=== PATIENT | female | born 1995 | race Caucasian/White ===

== ENCOUNTER 2019-04-08 07:39 | Inpatient (IN) ==
[~2019-04-08 07:39] MED LIST: CEFAZOLIN 3000MG 65 ML IV SCH
[2019-04-08] MEDS ORDERED: OXYTOCIN 30 UNITS/500 ML BAG IV PRN ×2 (07:42→07:46)
[2019-04-08] MEDS ORDERED: LACTATED RINGER'S 1,000 ML IV PRN (07:42)
[2019-04-08 08:12] LABS: Hematocrit (blood only) 36.6 % (37-47); Mean Corpuscular Hemoglobin 25.7 pg (25-34); Mean Corpuscular Volume 78.4 fL (80-100); Mean Platelet Volume 9.7 fL (7.4-10.4); Platelet Count 265 K/uL (130-400); RDW Coefficient of Variation 15.9 % (11.5-14.5); RDW Standard Deviation 45.2 fL (36.4-46.3); Red Blood Count 4.67 M/uL (4.2-5.4); White Blood Count 11.93 K/uL (4.8-10.8)
[2019-04-08 08:21] LABS: Mean Corpuscular Hgb Conc 32.8 g/dL (32-36)
[2019-04-08] MEDS ORDERED: LACTATED RINGER'S 1,000 ML IV SCH (08:45)
[2019-04-08] MEDS ORDERED: fentaNYL citrate 100 MCG/2 ML VIAL ONE (08:48)
--- NOTE | 2019-04-08 08:52 | Anesthesiology Consultation ---
Date of Service April 08, 2019 Assessment & Plan Chart Review Chart Review: Acceptable Risk for Surgery and Patient NOT seen in Pre Admission Testing Consults Requested none ASA [id number] Proposed Anesthesia Anesthesia Type: General Risk / Benefits Reviewed With: PT / POA / Parent / Guardian, Accepts Plan and Informed Consent Obtained History Surgery Operation Date: 04/08/19 08:45 Proposed Procedures p Section in OR - Emily Wilkerson MD, FACOG Height/Weight Height: 5 ft 4 in Weight: 112.945 kg Allergies Allergy/AdvReac Type Severity Reaction Status Date / Time latex AdvReac Rash Verified 04/07/19 13:00 Medications Home Medications Medication Instructions Recorded Confirmed Last Taken 1 tab PO DAILY 01/22/19 04/08/19 04/07/19 10:00 vitamin,calcium,hpkwixqy-xbwb-otczq acid tablet NPO Date Last Intake of Fluids: 04/08/19 Time Last Intake of Fluids: 06:00 Date Last Intake of Solids: 04/08/19 Time Last Intake of Solids: 06:00 Past Medical History Medical History Anemia GERD (gastroesophageal reflux disease) Morbidly obese Asthma Depression used to take celexa History of varicella Exercise / Class Metabolic Activity III < 4 Walking/Shop/Light housework Past Family History Family History Unknown Asthma Diabetes Grandmother (Maternal) Breast cancer Mother Thyroid disease Sister Thyroid disease Past Surgical History Surgical History S/P wisdom tooth extraction 2015 Past Anesthesia History No Hx of Anesthesia Complications and No Family Hx of Anesthesia Complications History of PONV No Hx of PONV and No Hx of Motion Sickness Social History Smoking Status: Never smoker Do You Dip or Chew Tobacco: No Hx Alcohol Use: No Hx Substance Use: No Physical Exam Vital Signs Last Vital Signs Temp 36.9 C 04/08/19 07:51 Pulse 93 H 04/08/19 08:44 Resp 22 04/08/19 07:51 BP 111/60 04/08/19 08:16 Pulse Ox 100 04/08/19 08:44 Constitutional + morbidly obese ENMT Mouth: no dentition abnormality Thyromental Distance: < 3.5 Finger Breadths Mallampati Class: II Neck normal visual inspection and trachea midline; neck extension not limited Respiratory normal respiratory effort Auscultation: lungs clear to auscultation bilaterally Cardiovascular Rate/Rhythm: regular rate and regular rhythm Heart Sounds: no murmur Musculoskeletal Spine: normal cervical ROM Neurologic moves all extremities Motor/Sensory: no sensory deficit Psychiatric Orientation: alert and oriented x 3 Testing Laboratory Results 04/08/19 08:00
[2019-04-08] MEDS ORDERED: CITRIC ACID/SODIUM CITRATE 15 ML UDC PO SCH (09:00)
[2019-04-08] MEDS ORDERED: MIDAZOLAM HCL 1 MG/ML 2ML VIAL ONE (09:06)
[2019-04-08] MEDS ORDERED: ONDANSETRON INJ 2 MG/ML 2 ML VIAL IV PRN ×2 (09:11→09:46)
[2019-04-08] MEDS ORDERED: ATROPINE SULFATE 0.1 MG/ML 10ML SYR IV PRN (09:11)
[2019-04-08] MEDS ORDERED: ePHEDrine sulfate 50 MG/ML AMP IV PRN (09:11)
[2019-04-08] MEDS ORDERED: HYDROmorphone INJ 2 MG/ML SYR/VIAL ONE (09:16)
[2019-04-08] MEDS ORDERED: OXYTOCIN 10 UNITS/ML VIAL ONE ×3 (09:19→09:23)
[2019-04-08] MEDS ORDERED: SUCCINYLCHOLINE CHLORIDE 20 MG/ML 10 ML VIAL ONE (09:20)
[2019-04-08] MEDS ORDERED: LIDOCAINE HCL 2% 2 ML VIAL/AMP(20MG/ML) INFIL ONE (09:20)
[2019-04-08] MEDS ORDERED: DEXAMETHASONE SOD INJ 4 MG/ML VIAL ONE (09:20)
[2019-04-08] MEDS ORDERED: ONDANSETRON INJ 2 MG/ML 2 ML VIAL ONE (09:20)
[2019-04-08] MEDS ORDERED: PROPOFOL IV EMULSION 10 MG/ML 20 ML VIAL IV ONE (09:20)
[2019-04-08] MEDS ORDERED: CARBOPROST TROMETHAMINE 250 MCG/ML AMPUL IM ONE (09:33)
[2019-04-08] MEDS ORDERED: ePHEDrine sulfate 50 MG/ML AMP ONE (09:35)
[2019-04-08] MEDS ORDERED: PHENYLEPHRINE HCL 10 MG/ML VIAL ONE (09:35)
--- NOTE | 2019-04-08 09:36 | Post Operative Brief Note ---
PG Immediate Post Op with CF Date of Surgery April 08, 2019 Pre & Post Diagnosis Operation Date: 04/08/19 08:45 Pre-Op Diagnosis: Uterine Pregancy at 41 weeks , non-reassuring heart rate testing, 2 vessel cord. Post-Op Diagnosis: Uterine Pregancy at 41 weeks, non-reassuring heart rate testing, 2 vessel cord. I identified the patient and participated in the time-out.: Yes Procedure Operation Date: 04/08/19 08:45 Actual Procedures p Emergency primary low transverse Section in OR(Not Applicable) - Emily Wilkerson MD, FACOG Surgeon Emily Wilkerson MD, FACOG Gynecology Teacher Dr. Elizabeth Estimated Blood Loss 700 Findings Consistent with Post-Op Diagnosis Specimens Specimen Description: A. Cord Blood B. Placenta Specimens taken and labeled by Labor and delivery Nurses. Drains Dennis Catheter (patient arrived to OR with Dennis cath in place)
[2019-04-08] MEDS ORDERED: SENNA 8.6 MG TAB PO PRN (09:46)
[2019-04-08] MEDS ORDERED: MAGNESIUM HYDROXIDE SUSP 30 ML UDC PO PRN (09:46)
[2019-04-08] MEDS ORDERED: BENZOCAINE 20% AER SPR 82.5 GM CAN EXT PRN (09:46)
[2019-04-08] MEDS ORDERED: SUPERCREAM 0.870% 15 GM JAR EXT PRN (09:46)
[2019-04-08] MEDS ORDERED: PROMETHAZINE HCL 25 MG in SODIUM CHLORIDE 0.9% 50 ML IV PRN (09:46)
[2019-04-08] MEDS ORDERED: DiphenhydrAMINE HCL 50 MG/ML VIAL IV PRN (09:46)
[2019-04-08] MEDS ORDERED: HYDROCORTISONE ACETATE 25 MG SUPP PR PRN (09:46)
[2019-04-08] MEDS ORDERED: DIPHTHERIA/TETANUS/PERTUSSIS 0.5 ML SYR/VIAL IM ONE (09:46)
[2019-04-08] MEDS ORDERED: KETOROLAC 30 MG/ML VIAL IV PRN (09:46)
[2019-04-08] MEDS ORDERED: KETOROLAC 30 MG/ML VIAL ONE (09:54)
--- NOTE | 2019-04-08 10:07 | Operative Report ---
DATE OF OPERATION: 04/08/2019 PREOPERATIVE DIAGNOSES: 1. Intrauterine at 41 and 2/7 weeks. 2. Two-vessel cord. 3. Nonreassuring heart testing. POSTOPERATIVE DIAGNOSES: 1. Intrauterine at 41 and 2/7 weeks. 2. Two-vessel cord. 3. Nonreassuring heart testing. PROCEDURE: Emergent primary lower transverse section. SURGEON: Emliy Wilkerson MD SOFTWARE QUALITY AUTOMATION ENGINEER: Clara. ANESTHESIA: General per endotracheal tube. ESTIMATED BLOOD LOSS: 700 mL. FLUIDS: 1000 mL. URINE OUTPUT: 125 mL of clear yellow urine draining from the bladder at the end of the procedure. INDICATIONS: The patient is a 3, para 0-0-2-0 who presents this morning for induction of labor for postdates. The has been complicated with a 2-vessel cord with normal testing. The patient presented the evening before admission for Dennis bulb placement. This was placed without difficulty. The patient tolerated the procedure well. heart tones initially had some trouble settling down, but then did settle down with the baseline in the 130s and accels to the 150s. There were no decels noted. The patient was discharged home. She presented to labor and delivery this morning for induction of labor. The Dennis bulb was found to be sitting in the vagina and was gently removed. The fetus was placed on the monitor. Initial heart tones were in the 120s, but then the patient started to have spontaneous decelerations to the 70s that did respond to resuscitation, but were persistent and continued. Decision was made to proceed to emergent delivery. FINDINGS: On entering the operating room, heart tones were initially in the 120s, but then did decel to the 70s-80s, so the decision was made to proceed with general anesthetic. We delivered a viable male with clear fluid. Weight pending. Apgars 7 and 9. There was a 2-vessel cord with minimal amount of [place]'s jelly and 1 loose nuchal cord. Uterus, tubes, and ovaries were normal bilaterally. COMPLICATIONS: Emergent nature, but no complications of the surgery. DRAINS: Dennis. DISPOSITION: To recovery room in stable condition. DESCRIPTION OF PROCEDURE: The patient was taken to the operating room where she was identified verbally and by bracelet. The patient was taken to the operating room where she was identified and transferred to the operating table. heart tones were obtained as noted above initially in the 120s, but then did decel to the 70s. Decision made to proceed with emergent delivery under general anesthetic. The patient was transferred to the operating table. She was placed in the leftward tilt supine position. A Dennis catheter had previously been placed. She was splashed with Betadine and prepped and draped in a normal sterile fashion. Timeout was held. The patient had preoperative antibiotic ongoing. Once the patient was intubated safely by general anesthesia, Pfannenstiel skin incision was made with a knife, taken down to the underlying layer of fascia with the knife. The fascia was incised in the midline with the knife and stretched with the drone operator's fingers. The superior and inferior edge of the fascial incision was grasped and in a caudad cephalad manner. The fascia was removed from the muscles. The muscles were bluntly in the midline. The peritoneum was entered bluntly and the incision was stretched. The bladder blade was placed. A bladder flap was created, grasping the vesicouterine peritoneum with a snap entering with scissors, taken out laterally with scissors and creating digitally. The bladder blade was replaced. Hysterotomy incision was made with the knife. Clear fluid was noted. The drone operator's hands were placed into the incision. The head was delivered atraumatically through this. A loose nuchal cord x1 was reduced and the rest of baby was delivered with fundal pressure. Nose and mouth were bulb suctioned. Cord was clamped and cut. The infant was handed off to waiting supervising deputy for drying and attention. Cord blood and gases were obtained. The placenta was manually extracted. The uterus was exteriorized and cleared of all clot and debris with moistened laparotomy sponges. Hysterotomy incision was repaired in 2 layers, the first in a running locked layer, the second in an imbricating layer being careful to avoid the bladder. The posterior cul-de-sac was then irrigated and cleared of all clot and debris. The hysterotomy incision was inspected and a [id number] suture was needed in the midline for hemostasis and then hemostasis was good. The uterus was reanteriorized. Hysterotomy incision was again inspected. There was some oozing at the right angle and this was attended to with a uforxe-ml-kttsz suture until hemostasis was assured. The muscles were reapproximated in the midline with several interrupted sutures of 0 Vicryl. The rectus muscle was examined and found to be hemostatic. The fascia was then reapproximated starting at the corners and meeting in the midline and then the subcuticular tissue was irrigated and bleeding was attended to with Bovie electrocautery. The skin was closed with 4-0 subcuticular stitch. All sponge, lap and needle counts were correct x2. The patient tolerated the procedure well and was taken to recovery room in stable condition. I attest to the content of the Intraoperative Record and any orders documented therein. Any exception s are noted below.
[2019-04-08 10:11] LABS: Cord Venous Blood HCO3 24 mmol/L (18.4-26.8); Cord Venous Blood PCO2 51 mmHg (30.4-57.2); Cord Venous Blood PO2 331 mmHg (14.1-43.3)
[2019-04-08] MEDS: fentaNYL citrate 100 MCG/2 ML VIAL IV PRN ×4 (10:12→10:42)
[2019-04-08] MEDS ORDERED: MORPHINE SULFATE PCA 30 MG/30 ML IV PRN (10:12)
[2019-04-08] MEDS ORDERED: NALOXONE HCL 0.4 MG/1 ML VIAL/CARP IV PRN (10:12)
[2019-04-08 10:13] LABS: Base Excess Cord Arterial Bld -6.9 mEq/L (-9-1.8); CO2 Cord Arterial Blood 56 mmHg (39.1-73.5); HCO3 Cord Arterial Blood 22 mmol/L (19.7-28.5); pH Cord Arterial Blood 7.21 (7.1-7.38)
--- NOTE | 2019-04-08 10:23 | Communication Note ---
Date of Service: April 08, 2019 Late Entry While I was in assisting a scheduled c/s with Dr. Elizabeth, Nursing came in to inform us that the patient was having decels. fht at times in the 70s. This was spontaneous. this happened several times requiring resuscitation, position change and oxygen. Did recover to 120s but continued to happen spontaneously. Discussed the situation with the patient and her so. Explained that we would need to move to a c/s as baby not tolerating things despite no real contractions at all. Patient and SO expressed understanding of the situation. Consent reviewed and signed. Will be proceeding to the OR downstairs.
--- NOTE | 2019-04-08 10:59 | Anesthesiology Progress Note ---
Date of Service April 08, 2019 Anesthesia Post Procedure Vital Signs Vital Signs: Temp Pulse Pulse Resp BP BP Pulse Ox 04/08/19 10:47 88 22 124/76 100 04/08/19 10:35 71 17 137/89 100 04/08/19 10:25 71 18 130/89 100 04/08/19 10:15 73 20 137/89 100 04/08/19 10:05 81 22 142/92 H 100 04/08/19 09:59 97.3 F L 90 16 133/93 100 04/08/19 08:49 91 H 100 04/08/19 08:44 93 H 100 04/08/19 08:39 97 H 100 04/08/19 08:34 103 H 98 04/08/19 08:16 74 111/60 04/08/19 07:51 98.4 F 22 Pain Intensity Lower Abdomen: Pain Intensity: 4 Transfer of Care Handoff Completed per policy Notes Mental Status: alert / awake / arousable and participated in evaluation Patient Amnestic to Procedure: Yes Nausea / Vomiting: adequately controlled Pain: adequately controlled Airway Patency, RR, SpO2: stable & adequate BP & HR: stable & adequate Hydration State: stable & adequate Anesthetic Complications: no major complications apparent and Pt Satisfied with anesthetic care
[2019-04-08] MEDS ORDERED: COUGH DROP (SUGAR FREE) LOZ 24 LOZ/1 BOX BUCCAL ONE (12:23)
[2019-04-08] MEDS: SIMETHICONE 80 MG CHEW PO SCH ×3 (14:37→21:15)
[2019-04-08] MEDS: OXYTOCIN 20 UNITS in LACTATED RINGER'S 1,000 ML IV SCH (19:37)
[2019-04-08] MEDS: DOCUSATE SODIUM 100 MG CAP PO SCH (21:15)
[2019-04-09] MEDS: OXYTOCIN 20 UNITS in LACTATED RINGER'S 1,000 ML IV SCH ×2 (04:15→11:27)
--- NOTE | 2019-04-09 06:45 | Obstetrical Progress Note ---
Date of Service <Kourtney Diaz MD - Last Filed: 04/09/19 07:40> April 09, 2019 Assessment & Plan <Kourtney Diaz MD - Last Filed: 04/09/19 07:40> (1) Encounter for postoperative care: - POD1 after emergency C/S for NRFHR with breech presentation - mom doing okay this AM - cheng removed, no urination yet, passing gas - tolerating oral diet - currently on high flow nasal cannula in room Day #:: 1 Subjective <Kourtney Diaz MD - Last Filed: 04/09/19 07:40> Passing Gas:: Yes Diet Tolerance:: regular diet Lochia:: Moderate Feeding Type:: breast feeding Physical Exam <Kourtney Diaz MD - Last Filed: 04/09/19 07:40> Constitutional well developed and well nourished Respiratory normal respiratory effort; no respiratory distress, no labored breathing and no cough Auscultation: no crackles, no rales, no rhonchi and no wheezes Cardiovascular Rate/Rhythm: regular rate and regular rhythm Heart Sounds: no gallop, no murmur and no cardiac rub Extremities: + pedal edema Gastrointestinal (Abdomen) Inspection/Auscultation: + abdomen distended and normal bowel sounds Percussion/Palpation: + abdomen tender and abdomen soft; no guarding Skin C/S incision covered by adhesive dressings. Tender to palpation outside of dressing area. Did not uncover dressing this AM. mild bruising on R posterior calf, tender to calf squeeze on right but not on left. Genitourinary Uterus firm, palpable at umbilicus, some tenderness to palpation. Results & Data <Kourtney Diaz MD - Last Filed: 04/09/19 07:40> Vital Signs (Past 12 Hours) Vital Signs Temp Pulse Pulse Resp BP Pulse Ox 04/09/19 03:30 36.8 C 90 18 108/67 96 04/08/19 23:00 36.6 C 81 20 114/74 97 04/08/19 20:00 36.9 C 95 H 16 116/75 97 <Nessa Patel MD, FACOG - Last Filed: 04/09/19 08:51> Co-Signing Physician Notes Resident Physician Supervision Note: I interviewed and examined the patient. Discussed with Dr. Diaz and agree with findings and plan as documented in the note. Any exceptions or clarifications are listed here: [None] Documented By: Nessa Patel MD, FACOG
[2019-04-09] MEDS ORDERED: ACETAMINOPHEN 500 MG TAB PO PRN (07:38)
[2019-04-09 07:40] LABS: Basophils # (auto) 0.01 K/uL (0-0.2); Basophils % (auto) 0.1 %; Eosinophils # (auto) 0.08 K/uL (0-0.5); Eosinophils % (auto) 0.6 %; Hematocrit (blood only) 26.7 % (37-47); Hemoglobin 8.7 g/dL (12.0-16.0); Immature Granulocytes # (auto) 0.03 K/uL (0.00-0.02); Immature Granulocytes % (auto) 0.2 %; Lymphocytes # (auto) 2.59 K/uL (1.2-3.4); Lymphocytes % (auto) 20.9 %; Mean Corpuscular Hgb Conc 32.6 g/dL (32-36); Mean Corpuscular Volume 79.7 fL (80-100); Mean Platelet Volume 9.6 fL (7.4-10.4); Monocytes # (auto) 0.68 K/uL (0.11-0.59); Monocytes % (auto) 5.5 %; Neutrophils # (auto) 9.03 K/uL (1.4-6.5); Neutrophils % (auto) 72.7 %; Platelet Count 225 K/uL (130-400); RDW Standard Deviation 46.7 fL (36.4-46.3); Red Blood Count 3.35 M/uL (4.2-5.4); White Blood Count 12.42 K/uL (4.8-10.8)
[2019-04-09] MEDS: DOCUSATE SODIUM 100 MG CAP PO SCH ×2 (08:09→20:29)
[2019-04-09] MEDS: FERROUS SULFATE 325 MG TAB PO SCH (08:09)
[2019-04-09] MEDS: PRENATAL VITAMIN 1 TAB PO SCH (08:09)
[2019-04-09] MEDS: IBUPROFEN 600 MG TAB PO PRN ×3 (09:46→20:29)
[2019-04-09] MEDS: OXYCODONE/ACETAMINOPHEN 5mg/325mg TAB PO PRN ×2 (09:47→20:30)
--- NOTE | 2019-04-09 10:59 | Ultrasound Report ---
US venous doppler LE RT CLINICAL HISTORY: calf pain in , bruising COMPARISON STUDY: No previous studies for comparison. FINDINGS: Real-time and color flow Doppler imaging were performed. Flow was seen within the femoral, popliteal and calf veins with no intraluminal thrombus demonstrated. The saphenous vein is patent. IMPRESSION: No evidence of deep venous thrombosis. The above report was generated using voice recognition software. It may contain grammatical, syntax or spelling errors. Electronically signed by: Hernandez Mccord M.D. 04/09/2019 10:58 AM
[2019-04-09] MEDS: SIMETHICONE 80 MG CHEW PO SCH ×4 (11:03→20:29)
--- NOTE | 2019-04-09 11:03 | Anesthesiology Progress Note ---
Date of Service April 09, 2019 Anesthesia Post Procedure Vital Signs Vital Signs: Temp Pulse Pulse Resp BP Pulse Ox 04/09/19 03:30 98.2 F 90 18 108/67 96 04/08/19 23:00 97.9 F 81 20 114/74 97 04/08/19 20:00 98.4 F 95 H 16 116/75 97 04/08/19 17:15 23 04/08/19 16:30 97.9 F 95 H 23 125/82 96 04/08/19 12:30 98.2 F 74 19 116/73 98 04/08/19 11:22 97.9 F 70 19 120/80 96 Pain Intensity Lower Abdomen: Pain Intensity: 3 Transfer of Care Handoff Completed per policy Notes Mental Status: alert / awake / arousable and participated in evaluation Patient Amnestic to Procedure: Yes Nausea / Vomiting: adequately controlled Pain: adequately controlled Airway Patency, RR, SpO2: stable & adequate BP & HR: stable & adequate Hydration State: stable & adequate Anesthetic Complications: no major complications apparent and Pt Satisfied with anesthetic care
[2019-04-09] MEDS: SODIUM CHLORIDE 0.9% 1000ML 1,000 ML IV SCH (11:23)
[2019-04-09] MEDS: LACTATED RINGER'S 1,000 ML IV SCH ×7 (11:24→18:01)
[2019-04-09] MEDS ORDERED: bisacodyL 5 MG TABEC PO SCH (20:00)
[2019-04-10] MEDS: IBUPROFEN 600 MG TAB PO PRN ×5 (00:41→23:41)
[2019-04-10] MEDS: OXYCODONE/ACETAMINOPHEN 5mg/325mg TAB PO PRN ×5 (00:42→23:40)
--- NOTE | 2019-04-10 06:38 | Obstetrical Progress Note ---
Date of Service <Kourtney Diaz MD - Last Filed: 04/10/19 08:10> April 10, 2019 Assessment & Plan <Kourtney Diaz MD - Last Filed: 04/10/19 08:10> (1) Encounter for postoperative care: 24 yo here after encounter for labor progressed to a stat C/S for nonresponsive heart tones, 2 vessel cord found after . Doing much better this Am. Pain well controlled with oral percocet. tolerating oral diet, ambulating to bathroom. Generally looking much better than yesterday. Day #:: 2 Subjective <Kourtney Diaz MD - Last Filed: 04/10/19 08:10> Ambulation: ambulating normally Voiding: no voiding problems Passing Gas:: Yes Diet Tolerance:: regular diet Feeding Type:: breast feeding Current Pain Level(1-10): 0 24 yo here after encounter for labor progressed to a stat C/S for non responsive heart tones. Doing much better this Am. Pain well controlled with oral percocet. Constitutional: + fatigue; no fever and no chills Respiratory: no cough and no dyspnea No shortness of breath Cardiovascular: + edema; no chest pain, no syncope and no calf pain Breast: no breast pain Gastrointestinal: no abdominal pain, no nausea, no vomiting, no cramping, no constipation and no diarrhea/loose stools Genitourinary (female): no dysuria and no difficulty urinating Neurologic: no headache(s) Physical Exam <Kourtney Diaz MD - Last Filed: 04/10/19 08:10> Constitutional well developed and well nourished Respiratory normal respiratory effort; no respiratory distress, no labored breathing and no cough Auscultation: no crackles, no rales, no rhonchi and no wheezes Cardiovascular Rate/Rhythm: regular rate and regular rhythm Heart Sounds: no gallop, no murmur and no cardiac rub Extremities: + pedal edema Gastrointestinal (Abdomen) Inspection/Auscultation: + abdomen distended and normal bowel sounds Percussion/Palpation: + abdomen tender and abdomen soft; no guarding Results & Data <Kourtney Diaz MD - Last Filed: 04/10/19 08:10> Vital Signs (Past 12 Hours) Vital Signs Temp Pulse Pulse Pulse Resp BP Pulse Ox 04/10/19 00:25 36.8 C 91 H 91 H 18 110/73 04/09/19 20:00 36.9 C 96 H 18 111/70 97 <Leslie Oliver MD, FACOG - Last Filed: 04/10/19 08:12> Co-Signing Physician Notes Resident Physician Supervision Note: I was present with Dr. Diaz during the history and exam. I discussed the case with the resident and agree with the findings and plan as documented in the note. Any exceptions or clarifications are listed here: pt doing well, ambulating, domenic regular diet, +flatus, pain well controlled. voiding well. no cp/sob. vss, abd soft ff 2 down nt, incision c/d/i. pod #2 doing well, routine care. Documented By: Leslie Oliver MD, FACOG
[2019-04-10 06:53] LABS: Hematocrit (blood only) 26.2 % (37-47); Hemoglobin 8.5 g/dL (12.0-16.0)
[2019-04-10] MEDS: FERROUS SULFATE 325 MG TAB PO SCH (08:19)
[2019-04-10] MEDS: DOCUSATE SODIUM 100 MG CAP PO SCH ×2 (08:20→21:13)
[2019-04-10] MEDS: SIMETHICONE 80 MG CHEW PO SCH ×4 (08:20→21:13)
[2019-04-10] MEDS: PRENATAL VITAMIN 1 TAB PO SCH (08:20)
[2019-04-10] MEDS ORDERED: bisacodyL 10 MG SUPP PR PRN (09:46)
[2019-04-10] MEDS ORDERED: Nursing to Pharmacy Communication ONE (15:12)
[2019-04-10 16:24] VITALS: TEMP 98.1
--- NOTE | 2019-04-11 07:09 | Obstetrical Progress Note ---
Date of Service <Kourtney Diaz MD - Last Filed: 04/11/19 07:17> April 11, 2019 Assessment & Plan <Kourtney Diaz MD - Last Filed: 04/11/19 07:17> (1) Encounter for postoperative care: 24 yo POD3 s/p stat C/S for nonresponsive heart tones, 2 vessel cord found after . May require tighter pain control with scheduled percocet and tylenol, ibuprofen. Concern for increasing uterine tenderness, however uterus is still firm and p atient is afebrile, lochia slowing. Tolerating oral diet, ambulating to bathroom. Recommend ambulation on the floor. Able to D/C home today. Subjective <Kourtney Diaz MD - Last Filed: 04/11/19 07:17> Ambulation: limited ambulation Voiding: no voiding problems Passing Gas:: Yes Diet Tolerance:: regular diet Lochia:: Small Feeding Type:: breast feeding Current Pain Level(1-10): 4 Increasing abdominal pain and soreness compared to yesterday. Tolerating regular diet without N/V. Moving bladder and passing gas without issue. Breast feeding. Ambulating to bathroom, however hasn't walked around floor yet. Constitutional: + fatigue; no fever and no chills Cardiovascular: + edema; no chest pain, no syncope and no calf pain Physical Exam <Kourtney Diaz MD - Last Filed: 04/11/19 07:17> Constitutional well developed and well nourished Respiratory normal respiratory effort; no respiratory distress, no labored breathing and no cough Auscultation: no crackles, no rales, no rhonchi and no wheezes Cardiovascular Rate/Rhythm: regular rate and regular rhythm Heart Sounds: no gallop, no murmur and no cardiac rub Extremities: + pedal edema Gastrointestinal (Abdomen) Inspection/Auscultation: + abdomen distended and normal bowel sounds Percussion/Palpation: abdomen soft Abdomen particularly tender to exam. No epigastric tenderness, + tender to palpation in RLQ and to palpation of uterus. No rebound, no guarding. Musculoskeletal No calf pain or tenderness to palpation Genitourinary Uterus firm and increasingly tender to palpation compared to exam yesterday. Palpable just below umbilicus. C/S incision still dry, clean, intact, no oozing blood or fluid. No surrounding erythema present, increased point tenderness near left corner of incision. Results & Data <Kourtney Diaz MD - Last Filed: 04/11/19 07:17> Vital Signs (Past 12 Hours) Vital Signs Temp Pulse Resp BP Pulse Ox 04/10/19 23:10 36.7 C 90 15 108/73 97 04/10/19 19:40 36.7 C 95 H 16 114/75 100 <Reina Rodriguez MD - Last Filed: 04/11/19 08:50> Co-Signing Physician Notes I have reviewed the resident's note and examined the patient myself, and agree with the note above. Resident Activity Tracking <Kourtney Diaz MD - Last Filed: 04/11/19 07:17> Resident Involvement: Resident Care Provided Care Provided: OB Delivery
[2019-04-11] MEDS: SIMETHICONE 80 MG CHEW PO SCH ×2 (08:22→12:34)
[2019-04-11] MEDS: DOCUSATE SODIUM 100 MG CAP PO SCH (08:22)
[2019-04-11] MEDS: FERROUS SULFATE 325 MG TAB PO SCH (08:22)
[2019-04-11] MEDS: IBUPROFEN 600 MG TAB PO PRN ×2 (08:22→12:35)
[2019-04-11] MEDS: PRENATAL VITAMIN 1 TAB PO SCH (08:22)
[2019-04-11] MEDS: OXYCODONE/ACETAMINOPHEN 5mg/325mg TAB PO PRN ×2 (08:23→12:34)
[2019-04-11 09:31] VITALS: BP 108/72; PULSE 91; O2SAT 100
--- NOTE | 2019-04-14 11:04 | Discharge Summary ---
ADMIT DIAGNOSES: 1. Intrauterine at 41+ weeks. 2. Two-vessel umbilical cord. DISCHARGE DIAGNOSES: 1. Intrauterine at 41+ weeks. 2. Two-vessel umbilical cord. 3. Nonreassuring heart testing. PROCEDURES: Emergent primary low transverse section. HISTORY OF PRESENT ILLNESS: The patient is a 3, para 0-0-2-0 who presented for induction at 41+ weeks for postdates induction. The had been complicated by a 2-vessel umbilical cord with a normal echo, normal weekly NSTs and normal growth ultrasounds. The patient had presented the night before for Dennis bulb for cervical ripening. The fetus was reassuring at that time and she was sent home. When she presented in the morning for induction, the heart tones noted to have spontaneous decelerations to the 70s, happening several times requiring resuscitation, position changes and oxygenation. The heart tones did recover to a baseline of 120s, but this continued to happen spontaneously. We discussed the situation with the patient and her significant other. The Dennis bulb had been pulled out by Dr. Elizabeth prior to going back for a scheduled and the cervix was 3 cm dilated. I discussed with the patient the urgency of the situation and she consented for section. For the rest the patient's history and physical, please see her OB notes. ASSESSMENT: This is a 3, para 0-0-2-0 with an intrauterine at 41+ weeks who was presenting for an induction for postdates. Baby had a known 2-vessel cord. There was nonreassuring heart testing with spontaneous decels to the 70s before we even began any intervention. HOSPITAL COURSE: The patient was admitted and she underwent an emergent primary low transverse section under general anesthesia. Estimated blood loss was 700 mL When we entered the operating room, the heart tones were initially in the 120s, but then did decel to the 70s-80s, so the decision was made to proceed with general anesthetic. We then delivered a viable male with clear fluid. Weight was pending at the time of surgery. Apgars were 7 and 9. There was a 2-vessel cord with minimal amount of [place]'s jelly and 1 loose nuchal cord. Uterus, tubes, and ovaries were normal bilaterally. The patient's postoperative course was uncomplicated. She tolerated a regular diet, ambulated without difficulty, voided after the removal of her Dennis catheter, had her pain well controlled. Her discharge H and H was 8.5 and 26.2. She was discharged home on postoperative day #3 with prescriptions for Percocet and ibuprofen and will return for followup per protocol.
== END 2019-04-11 14:35 | disposition home or self-care (01) | DRG 788 ==
LOC: 4S1 07:39 → 4S2 12:25

== ENCOUNTER 2020-09-02 05:27 | Inpatient (IN) ==
--- NOTE | 2020-08-11 09:10 | Anesthesiology Consultation ---
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 She wears a mask in public, washes hands, social distances. Works in [place] counties and has 6 clients in those counties. "Almost all of those clients have had Covid vaccine, everyone has been healthy." Patient aware of need for pre-op COVID test. Patient was diagnosed with COVID-19 on 05/18/2020 (will obtain record of test results). By DOS will > 90 days since dx. Per DATA ANALYTICS ARCHITECT note on 08/04/2020, Covid test ordered for August 27. 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 Surgery Operation Date: 09/02/20 07:30 Proposed Procedures p Section in LD - Emily Wilkerson MD, FACOG Height/Weight Height: 5 ft 4 in Weight: 98.883 kg Allergies Allergy/AdvReac Type Severity Reaction Status Date / Time latex AdvReac Unknown Rash Verified 08/11/20 08:51 FRUIT Allergy Unknown KIWI, Uncoded 08/11/20 08:52 PINEAPPLE, BANANAS-SCRATCHY TONGUE Medications Home Medications Medication Instructions Recorded Confirmed Last Taken prenat.vits,justus,dmm-tdmy-ehode 1 tab PO HS 01/22/19 08/11/20 04/07/19 10:00 Iron Tab Otc Gummies 1 tab PO HS 08/11/20 08/11/20 Unknown Past Medical History Medical History Acne vulgaris Anemia BORDERLINE-TAKING IRON SUPPLEMENTS Asthma A CHILD Chlamydia 2012 Depression HX-NO MEDS Encounter for anatomic survey Encounter for postoperative care GERD (gastroesophageal reflux disease) Miscarriage Morbidly obese Normal in multigravida, antepartum Prolonged , antepartum Two vessel umbilical cord, antepartum Varicella vaccine Past Family History Family History Unknown Diabetes MOTHER, MATERNAL GRANDMOTHER Asthma Grandmother (Maternal) Breast cancer Mother Thyroid disease Sister Thyroid disease Past Surgical History Surgical History H/O section S/P wisdom tooth extraction 2015 Social History Smoking Status: Never smoker Do You Dip or Chew Tobacco: No Hx Alcohol Use: Yes Alcohol type: hard liquor alcohol intake frequency: holidays/special occasions only Alcohol Intake Frequency Comment: WHEN NOT Hx Substance Use: No
--- NOTE | 2020-09-01 14:11 | History and Physical Report ---
DATE OF ADMISSION: 09/02/2020 ADMIT DIAGNOSES: 1. Intrauterine at 39 and 0/7 weeks. 2. History of previous section, desires repeat. HISTORY OF PRESENT ILLNESS: The patient is a 25-year-old white female, 4, para 1-0-2-1, who presents for repeat section. Her first viable was delivered in 03/2019. It was an induction at 41 weeks. She came in for a Dennis bulb the night before induction and it was placed with a reactive and category 1 tracing, and then when she returned in the morning for her induction, there were variables noted that did not recover and she ended up having a section under general anesthesia. There was a 2-vessel cord with that. The baby did fine. She now presents at 39 and 0/7 weeks and desires repeat section, declining trial of labor, declines tubal ligation. This has essentially been uncomplicated. She did have a positive COVID test on 05/14/2020, but had a subsequent negative COVID test on 08/27/2020. She has noted good movement, no significant labor, no swelling, no vaginal bleeding or leaking of fluid. The baby is vertex. PAST OBSTETRIC AND GYNECOLOGIC HISTORY: The patient's first was in 06/2016 with spontaneous . Second in 06/2017, spontaneous . Third as noted above and this is the fourth . She had chlamydia diagnosed in 2011, which was treated, but denies other STDs. PAST MEDICAL HISTORY: Significant for history of depression -- not currently on medications, history of anemia, history of GERD, history of childhood asthma, but has not been an issue as an adult and she is otherwise healthy. PAST SURGICAL HISTORY: Includes and wisdom teeth removal. SOCIAL HISTORY: The patient denies tobacco, alcohol or drug use. PHYSICAL EXAMINATION: GENERAL: This is a well-developed, well-nourished white female in no acute distress. VITAL SIGNS: Her blood pressure is 122/74, her weight is 224 pounds. NECK: Supple without thyromegaly or lymphadenopathy. CHEST: Clear to auscultation bilaterally. CARDIOVASCULAR: Regular rate and rhythm without murmurs, gallops or rubs. ABDOMEN: Gravid, soft and nontender. EXTREMITIES: Show no edema. CERVIX: Exam has been deferred throughout. LABORATORY DATA: Blood type A positive, antibody negative, rubella immune, RPR nonreactive, hepatitis B negative, HIV negative. Glucose tolerance test normal x2. Chlamydia and gonorrhea cultures negative. Panorama within normal limits. She declines CF, SMA and AFP. Her GBS is negative and again she had a negative COVID screen on 08/27. ASSESSMENT AND PLAN: Shanthi is a 25-year-old white female, 4, para 1-0-2-1, who presents at 39 and 0/7 weeks for an elective repeat section. The risks of the procedure were discussed with the patient including the risks of anesthesia, bleeding requiring transfusion, infection, poor wound healing, damage to surrounding structures including bowel, bladder, vessels, nerves and ureters with need for further surgery, hospitalization or intervention. We discussed the other risks of any surgery including heart attack, blood clot, stroke and . Consent was reviewed and signed and surgery is planned for 09/02/2020.
[2020-09-02] MEDS ORDERED: LACTATED RINGER'S 1,000 ML IV SCH ×4 (05:30→10:50)
[2020-09-02] MEDS ORDERED: CITRIC ACID/SODIUM CITRATE 15 ML UDC PO SCH (06:00)
[2020-09-02 06:08] LABS: Basophils # (auto) 0.02 K/uL (0-0.2); Basophils % (auto) 0.2 %; Eosinophils # (auto) 0.32 K/uL (0-0.5); Eosinophils % (auto) 3.9 %; Hematocrit (blood only) 34.3 % (37-47); Hemoglobin 11.2 g/dL (12.0-16.0); Immature Granulocytes # (auto) 0.02 K/uL (0.00-0.02); Immature Granulocytes % (auto) 0.2 %; Lymphocytes # (auto) 2.54 K/uL (1.2-3.4); Lymphocytes % (auto) 30.8 %; Mean Corpuscular Hemoglobin 24.8 pg (25-34); Mean Corpuscular Hgb Conc 32.7 g/dL (32-36); Mean Corpuscular Volume 75.9 fL (80-100); Monocytes # (auto) 0.51 K/uL (0.11-0.59); Monocytes % (auto) 6.2 %; Neutrophils # (auto) 4.84 K/uL (1.4-6.5); Neutrophils % (auto) 58.7 %; Platelet Count 274 K/uL (130-400); RDW Coefficient of Variation 15.1 % (11.5-14.5); RDW Standard Deviation 42.4 fL (36.4-46.3); Red Blood Count 4.52 M/uL (4.2-5.4); White Blood Count 8.25 K/uL (4.8-10.8)
[2020-09-02 06:31] LABS: Appearance Urine Clear (Clear); Bacteria Urine Automated Negative (Negative); Bilirubin Urine Negative (Negative); Blood Urine Trace (Negative); Color Urine Yellow; Epithelial Cell Urine Auto >30 /lpf (0-5); Glucose Urine UA Negative (Negative); Ketones Urine Negative (Negative); Leukocyte Esterase Urine 1+ (Negative); Nitrite Urine Negative (Negative); Protein Urine Negative (Negative); Specific Gravity Urine 1.022 (1.000-1.030); Urobilinogen Urine Negative (Negative); pH Urine 6.5 (4.5-7.5)
[2020-09-02] MEDS ORDERED: fentaNYL citrate 100 MCG/2 ML VIAL ONE (06:41)
[2020-09-02] MEDS ORDERED: MoRPHine SULFATE PF 1 MG/ML 10 ML AMP/VIAL ONE (06:41)
--- NOTE | 2020-09-02 07:17 | History & Physical Bridge Note ---
Date of Service September 02, 2020 History & Physical Bridge Note I have examined the patient, reviewed the History & Physical and in the interval since the performance of the History & Physical I have noted the following changes of clinical significance: no changes noted
[2020-09-02] MEDS ORDERED: PROMETHAZINE HCL 25 MG in SODIUM CHLORIDE 0.9% 50 ML IV PRN (08:06)
[2020-09-02] MEDS ORDERED: diphenhydrAMINE 50 MG/ML VIAL IV PRN (08:06)
[2020-09-02] MEDS ORDERED: MoRPHine SULFATE PF 1 MG/ML 10 ML AMP/VIAL INT SPINAL ONE (08:06)
[2020-09-02] MEDS ORDERED: ePHEDrine sulfate 50 MG/ML AMP IV PRN (08:06)
[2020-09-02] MEDS ORDERED: NALOXONE HCL 1 MG in SODIUM CHLORIDE 0.9% 1000ML 1,000 ML IV PRN (08:06)
[2020-09-02] MEDS ORDERED: NALOXONE HCL 0.4 MG/1 ML VIAL/CARP IV PRN (08:06)
[2020-09-02] MEDS ORDERED: MoRPHine SULFATE 2 MG/ML CARP IV PRN (08:06)
[2020-09-02] MEDS ORDERED: ONDANSETRON INJ 2 MG/ML 2 ML VIAL IV PRN (08:06)
[2020-09-02] MEDS ORDERED: LACTATED RINGER'S 500 ML IV PRN (08:06)
[2020-09-02] MEDS ORDERED: MEPERIDINE HCL 25 MG/ML CARP/VIAL IV PRN (08:06)
[2020-09-02] MEDS ORDERED: NALOXONE HCL 0.08 MG in SYRINGE 1.8 ML IV PRN (08:06)
[2020-09-02] MEDS ORDERED: SODIUM CHLORIDE 0.9% 1000ML 1,000 ML IV SCH (08:15)
[2020-09-02] MEDS ORDERED: NO NARCOTICS OR SEDATIVES SCH (08:15)
[2020-09-02] MEDS ORDERED: ONDANSETRON INJ 2 MG/ML 2 ML VIAL ONE (08:16)
[2020-09-02] MEDS ORDERED: OXYTOCIN 10 UNITS/ML VIAL ONE (08:16)
[2020-09-02] MEDS ORDERED: ePHEDrine sulfate 50 MG/ML SYR ONE (08:32)
[2020-09-02] MEDS ORDERED: PHENYLEPHRINE 100MCG/ML 5ML SYR ONE (08:32)
--- NOTE | 2020-09-02 08:53 | Operative Report ---
PG Post Operative Report Pre & Post Diagnosis Operation Date: 09/02/20 07:30 Pre-Op Diagnosis: Previous Section; Desires Repeat Section. Post-Op Diagnosis: Previous Section; Desires Repeat Section. I identified the patient and participated in the time-out.: Yes Procedure Operation Date: 09/02/20 07:30 Actual Procedures p Repeat lower transverse Section in LD; Live Female Infant at 0817 in OR #3(Bilateral) - Emily Wilkerson MD, FACOG Surgeon Emily Wilkerson MD, FACOG Aqua Ammonia Operator Dr. Luther Estimated Blood Loss 600 Findings Consistent with Post-Op Diagnosis viable female infant, apgars 8/9. nl uterus/tubes/ovaries Fluids 1000cc Specimens placenta Drains cheng Anesthesia Type Spinal Complications none Disposition Accompanied Patient To Recovery: Yes Disposition: L&D Indications IUP at 39 0/7 weeks with hx of previous c/s who desires repeat. Description of Procedure The patient was taken to the operating room where she was identified verbally and by bracelet. She was seated on the operating table where a spinal anesthetic was placed by anesthesia. she was then placed in the supine position with a leftward tilt. A Cheng catheter was placed sterilely. the patient was prepped and draped in a normal standard fashion. the anesthetic was tested and found to be adequate. A time-out was held, identifying correct patient, procedure, positioning and preoperative antibiotics. There were no concerns. A Pfannenstiel skin incision was made with a knife and taken down to the underlying layer of fascia with the knife and Bovie electrocautery. Bleeding was attended to with Bovie cautery. The fascia was incised in the midline with the knife and taken out laterally with scissors. the superior edge of the fascial incision was grasped, elevated and the underlying layer of rectus muscle was taken off bluntly and with scissors. In a similar fashion, the inferior edge of the fascial incision was grasped, elevated and the underlying layer of rectus muscle was taken off bluntly and with scissors. The muscles were bluntly in the midline. The peritoneum was entered bluntly. The incision was then stretched. The bladder blade was placed. The vesicouterine p eritoneum was identified, entered with scissors and taken out laterally with scissors. The bladder flap was created digitally A hysterotomy incision was scored with a knife and the incision was stretched cephalad and caudad with the breaker machine operator's fingers. The operators hand was placed into the incision and the head was delivered atraumatically. nuchal cord x 1. The nose and mouth were bulb suctioned. the rest of the was then delivered without difficulty. The nose and mouth were again bulb suctioned. the cord was clamped and cut and the was then handed off to the awaiting travel clerk for drying and attention. Cord blood and segment were obtained. The placenta was expressed. the uterus was exteriorized and cleared of all clot and debris with moistened laparotomy sponges. The hysterotomy incision was repaired in two layers, the first in a running locked layer, the second in an imbricating layer. Hemostasis was noted to be good. Posterior cul-de-sac was irrigated and cleared of all clot and debris. The hysterotomy incision was again inspected and found to be hemostatic. the uterus was reinteriorized. Hysterotomy incision was again inspected and two stitches of 0 vicryl needed for hemostasis. Rectus muscles were reapproximated with several interrupted stitches of 0 Vicryl. The fascia was then reapproximated with 0 Vicryl starting at the edges and meeting in the midline. The subcuticular tissues were copiously irrigated and bleeding was attended to with cautery. The skin was then closed with 4-0 Vicryl in a subcuticular fashion. All sponge, lap and needle counts correct x 2. Patient taken to labor and delivery in stable condition. I attest to the content of the Intraoperative Record and any orders documented therein. Any exceptions are noted below. OB Procedure charges OB Charges 22776 C/S
--- NOTE | 2020-09-02 09:04 | Anesthesiology Progress Note ---
Date of Service September 02, 2020 Anesthesia Post Procedure Vital Signs Vital Signs: Temp Pulse Resp BP Pulse Ox 09/02/20 09:02 81 100 09/02/20 08:58 84 127/59 L 09/02/20 08:57 88 99 09/02/20 07:34 95 H 110/63 09/02/20 07:28 84 111/66 09/02/20 07:15 36.5 C 64 18 115/60 09/02/20 07:03 64 115/60 09/02/20 05:52 36.6 C 78 118/70 09/02/20 05:34 36.6 C 78 18 118/70 Transfer of Care Handoff Completed per policy Notes Mental Status: alert / awake / arousable and participated in evaluation Patient Amnestic to Procedure: No Nausea / Vomiting: adequately controlled Pain: adequately controlled Airway Patency, RR, SpO2: stable & adequate BP & HR: stable & adequate Hydration State: stable & adequate Neuraxial Anesthesia: was administered and sensory block is resolving Anesthetic Complications: no major complications apparent and Pt Satisfied with anesthetic care
[2020-09-02] MEDS: KETOROLAC 30 MG/ML VIAL IV PRN ×2 (10:05→17:58)
[2020-09-02] MEDS ORDERED: HYDROCORTISONE ACETATE 25 MG SUPP PR PRN (10:50)
[2020-09-02] MEDS ORDERED: BENZOCAINE 20% AER SPR 82.5 GM CAN EXT PRN (10:50)
[2020-09-02] MEDS ORDERED: MAGNESIUM HYDROXIDE SUSP 30 ML UDC PO PRN (10:50)
[2020-09-02] MEDS ORDERED: SUPERCREAM 0.870% 15 GM JAR EXT PRN (10:50)
[2020-09-02] MEDS ORDERED: SENNA 8.6 MG TAB PO PRN (10:50)
[2020-09-02] MEDS ORDERED: ACETAMINOPHEN 1,000 MG/100 ML VIAL IV PRN (10:52)
[2020-09-02] MEDS: OXYTOCIN 20 UNITS in LACTATED RINGER'S 1,000 ML IV SCH ×2 (11:13→19:38)
[2020-09-02] MEDS: SIMETHICONE 80 MG CHEW PO SCH ×3 (13:56→20:25)
[2020-09-02] MEDS: DOCUSATE SODIUM 100 MG CAP PO SCH (20:25)
[2020-09-03] MEDS: KETOROLAC 30 MG/ML VIAL IV PRN (00:17)
[2020-09-03] MEDS ORDERED: DC INTRASPINAL MORPHINE SCH (02:06)
[2020-09-03] MEDS ORDERED: MEPERIDINE HCL 50 MG/ML CARP IV PRN (02:06)
[2020-09-03] MEDS ORDERED: KETOROLAC 30 MG/ML VIAL IV PRN (02:06)
[2020-09-03] MEDS ORDERED: ONDANSETRON INJ 2 MG/ML 2 ML VIAL IV PRN (02:06)
[2020-09-03] MEDS ORDERED: diphenhydrAMINE Capsule 25 MG CAP PO PRN (02:06)
[2020-09-03] MEDS ORDERED: PROMETHAZINE HCL 25 MG in SODIUM CHLORIDE 0.9% 50 ML IV PRN (02:06)
[2020-09-03] MEDS ORDERED: diphenhydrAMINE 50 MG/ML VIAL IV PRN (02:06)
--- NOTE | 2020-09-03 05:17 | Obstetrical Progress Note ---
Date of Service <Immanuel Hess MD - Last Filed: 09/03/20 07:28> September 03, 2020 Assessment & Plan <Immanuel Hess MD - Last Filed: 09/03/20 07:28> (1) : - PNL: Rh pos, RI, GBS neg, COVID neg - Feels well today. Eating well, voiding well, ambulating well - Pain well controlled with ibuprofen 600mg Q4H PRN - Routine postoperative care -- OOB, ambulation, diet progression as tolerated - After discharge will have 6 week follow-up with Dr. Wilkerson Subjective <Immanuel Hess MD - Last Filed: 09/03/20 07:28> Shanthi is a 25 y/o female who is POD #1 following elective delivery at 39+ weeks. She reports feeling well overall this morning. Light abdominal cramping and 3/10 pain well managed on analgesics. Voiding well. Tolerating meals overnight without difficulty. Patient has been able to ambulate some. Is passing gas and had a bowel movement. Has persistent lochia with some improvement this morning. Currently bottle feeding. Review of Systems Denies fever or chills. Denies shortness of breath or cough. Denies chest pain. Denies breast pain. Denies dysuria. Denies leg pain or leg swelling. Denies headache or changes in vision. Physical Exam <Immanuel Hess MD - Last Filed: 09/03/20 07:28> General: Alert, oriented. No acute distress. Cardiac: Regular rate and rhythm. No murmurs. Respiratory: Clear to auscultation bilaterally a/p, no wheezes/rales/rhonchi. No increased work of breathing. Symmetrical chest rise. No respiratory distress. Abdomen: Soft, nontender, nondistended. Bowel sounds present. Uterus: Uterine fundus firm, palpable ~1 cm below umbilicus. Surgical scar clean and healing well. Lower Extremities: No lower extremity edema or swelling. No deep calf pain. Marquise's negative bilaterally. Results & Data ([facility]) <Immanuel Hess MD - Last Filed: 09/03/20 07:28> Vital Signs (Past 12 Hours) Vital Signs Temp Pulse Resp BP Pulse Ox 09/03/20 02:03 18 99 09/03/20 01:00 18 96 09/03/20 00:00 36.8 C 72 18 105/65 99 09/02/20 22:29 18 98 09/02/20 21:05 16 100 09/02/20 20:19 16 99 09/02/20 19:35 36.6 C 60 18 105/67 98 09/02/20 18:30 14 99 09/02/20 17:51 18 100 <Emily Wilkerson MD, FACOG - Last Filed: 09/03/20 07:31> Co-Signing Physician Notes Resident Physician Supervision Note: I interviewed and examined the patient. Discussed with Dr. Weinberg and agree with findings and plan as documented in the note. Any exceptions or clarifications are listed here: Patient doing well. Voiding and passing gas. Tolerating n/v. Plan routine PPD1. Documented By: Emily Wilkerson MD, FACOG Resident Activity Tracking <Immanuel Hess MD - Last Filed: 09/03/20 07:28> Resident Involvement: Resident Care Provided Care Provided: OB Delivery
[2020-09-03] MEDS: oxyCODONE/ACETAMINOPHEN 5mg/325mg TAB PO PRN ×5 (05:40→23:21)
[2020-09-03] MEDS: IBUPROFEN 600 MG TAB PO PRN ×5 (05:41→23:21)
[2020-09-03 06:28] LABS: Basophils # (auto) 0.02 K/uL (0-0.2); Basophils % (auto) 0.2 %; Eosinophils # (auto) 0.28 K/uL (0-0.5); Eosinophils % (auto) 2.7 %; Immature Granulocytes # (auto) 0.02 K/uL (0.00-0.02); Immature Granulocytes % (auto) 0.2 %; Lymphocytes # (auto) 2.66 K/uL (1.2-3.4); Lymphocytes % (auto) 25.9 %; Mean Corpuscular Hemoglobin 24.6 pg (25-34); Mean Corpuscular Hgb Conc 31.4 g/dL (32-36); Mean Corpuscular Volume 78.3 fL (80-100); Mean Platelet Volume 9.9 fL (7.4-10.4); Monocytes # (auto) 0.58 K/uL (0.11-0.59); Monocytes % (auto) 5.6 %; Neutrophils # (auto) 6.72 K/uL (1.4-6.5); Neutrophils % (auto) 65.4 %; Platelet Count 231 K/uL (130-400); RDW Coefficient of Variation 15.5 % (11.5-14.5); RDW Standard Deviation 44.2 fL (36.4-46.3); Red Blood Count 4.47 M/uL (4.2-5.4); White Blood Count 10.28 K/uL (4.8-10.8)
[2020-09-03] MEDS: SIMETHICONE 80 MG CHEW PO SCH ×4 (08:20→19:35)
[2020-09-03] MEDS: PRENATAL VITAMIN 1 TAB PO SCH (08:20)
[2020-09-03] MEDS: FERROUS SULFATE 325 MG TAB PO SCH (08:20)
[2020-09-03] MEDS: DOCUSATE SODIUM 100 MG CAP PO SCH ×2 (08:21→19:35)
[2020-09-03] MEDS ORDERED: bisacodyL 5 MG TABEC PO SCH (20:00)
[2020-09-04] MEDS: oxyCODONE/ACETAMINOPHEN 5mg/325mg TAB PO PRN ×2 (02:55→07:47)
[2020-09-04] MEDS: IBUPROFEN 600 MG TAB PO PRN ×2 (02:55→07:48)
--- NOTE | 2020-09-04 05:35 | Obstetrical Progress Note ---
Date of Service <Immanuel Hess MD - Last Filed: 09/04/20 06:56> September 04, 2020 Assessment & Plan <Immanuel Hess MD - Last Filed: 09/04/20 06:56> (1) : - PNL: Rh pos, RI, GBS neg, COVID neg - Feels well today. Eating well, voiding well, ambulating well - Pain well controlled with ibuprofen 600mg Q4H PRN - Routine postoperative care -- OOB, ambulation, diet progression as tolerated - After discharge will have 6 week follow-up with Dr. Wilkerson Subjective <Immanuel Hess MD - Last Filed: 09/04/20 06:56> Shanthi is a 25 y/o female who is POD #2 following elective delivery at 39+ weeks. She reports feeling well overall this morning. Light abdominal cramping and 2/10 pain well managed on analgesics. Voiding well. Tolerating meals overnight without difficulty. Patient has been able to ambulate some. Is passing gas and had a bowel movement. Has persistent lochia with some improvement this morning. Currently bottle feeding. Review of Systems Denies fever or chills. Denies shortness of breath or cough. Denies chest pain. Denies breast pain. Denies dysuria. Denies leg pain or leg swelling. Denies headache or changes in vision. Physical Exam <Immanuel Hess MD - Last Filed: 09/04/20 06:56> General: Alert, oriented. No acute distress. Cardiac: Regular rate and rhythm. No murmurs. Respiratory: Clear to auscultation bilaterally a/p, no wheezes/rales/rhonchi. No increased work of breathing. Symmetrical chest rise. No respiratory distress. Abdomen: Soft, nontender, nondistended. Bowel sounds present. Uterus: Uterine fundus firm, palpable ~2 cm below umbilicus. Surgical scar clean and healing well. Lower Extremities: No lower extremity edema or swelling. No deep calf pain. Marquise's negative bilaterally. Results & Data ([facility]) <Immanuel Hess MD - Last Filed: 09/04/20 06:56> Vital Signs (Past 12 Hours) Vital Signs Temp Pulse Resp BP Pulse Ox 09/03/20 23:15 36.8 C 61 16 107/70 98 09/03/20 19:40 36.5 C 78 18 115/76 99 <Sun Francis MD, FACOG - Last Filed: 09/04/20 07:26> Co-Signing Physician Notes Resident Physician Supervision Note: I was present with Dr. Weinberg during the history and exam. I discussed the case with the resident and agree with the findings and plan as documented in the note. Any exceptions or clarifications are listed here: [None] Documented By: Sun Francis MD, FACOG Resident Activity Tracking <Immanuel Hess MD - Last Filed: 09/04/20 06:56> Resident Involvement: Resident Care Provided Care Provided: OB Delivery
[2020-09-04 06:13] LABS: Hemoglobin 9.4 g/dL (12.0-16.0)
[2020-09-04] MEDS: FERROUS SULFATE 325 MG TAB PO SCH (07:46)
[2020-09-04] MEDS: PRENATAL VITAMIN 1 TAB PO SCH (07:46)
[2020-09-04] MEDS: SIMETHICONE 80 MG CHEW PO SCH (07:47)
[2020-09-04] MEDS: DOCUSATE SODIUM 100 MG CAP PO SCH (07:47)
[2020-09-04] MEDS ORDERED: bisacodyL 10 MG SUPP PR PRN (09:00)
--- NOTE | 2020-09-06 10:04 | Discharge Summary (DS) ---
ADMITTING DIAGNOSES: 1. Intrauterine at 39 and 0/7th weeks. 2. History of previous section, desires repeat. DISCHARGE DIAGNOSES: 1. Intrauterine at 39 and 0/7th weeks. 2. History of previous section, desires repeat. PROCEDURES: Repeat lower transverse section. HISTORY OF PRESENT ILLNESS: The patient is a 25-year-old white female, 4, para 1-0-2-1, who presents for repeat section. Her first viable was delivered in 03/2019. It was induction at 41 weeks. She came in for Dennis bulb and IV for induction and it was placed with a reactive and category 1 tracing. When she returned in the morning for her induction, there were variables noted that did not recover and she ended up having a section under general anesthesia. There was a 2-vessel cord with that baby. The baby did well. She now presents at 39 and 0/7th weeks and desires repeat section, declining trial of labor and tubal ligation. The has been uncomplicated. She had a positive COVID test on 05/14/2020 but had a subsequent negative COVID test on 08/27/2020. For the rest of patient's detailed history and physical, please see her history and physical. ASSESSMENT: This patient is a 39 and 0/7th weeks patient who presents for repeat section. HOSPITAL COURSE: The patient was admitted and underwent a repeat lower transverse section to deliver a live female infant with Apgars 8 and 9. Normal uterus, tubes, and ovaries were noted bilaterally. Estimated blood loss was 600 mL The patient's postoperative course was uncomplicated. She tolerated a regular diet, ambulated without difficulty, tolerated pain with oral pain medications, voided without difficulty after the removal of her Dennis catheter. Her discharge H and H was 9.4 and 30.0. She was discharged home on postoperative day #2, doing well at the 6-week followup with Dr. Wilkerson in the office. She will call with any concerns.
== END 2020-09-04 11:45 | disposition home or self-care (01) | DRG 788 ==
LOC: 4S1 05:27 → EDSTATUS 07:30 → 4S2 11:27